=== PATIENT | female | born 2005 | race Caucasian/White ===

== ENCOUNTER 2024-11-19 11:01 | Outpatient (CLI) | payer OTHER, SELFPAY ==
--- OUTSIDE RECORDS SUMMARY | 2024-11-19 11:18 | XMS_ITS | Clinical Summary ---
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 Name Role Phone Unavailable Primary Care Provider Unavailabl e Social History Tobacco Use Types Packs/Day Years Used Date Smoking Tobacco: Never Assessed Comments Unknown Sex and Gender Information Value Date Recorded Sex Assigned at Not on file Legal Sex Female 5:52 PM [employer] Gender Identity Not on file Sexual Orientation Not on file Plan of Treatment Health Maintenance Due Date Last Done Comments Annual Physical 02/05/2007 HPV Vaccines (1 - 3-dose series) 02/05/2019 Meningococcal B Vaccine (1 o f 2 - Standard) 2020 Hepatitis C 02/05/2022 DTaP, Tdap and Td Vaccines ( 1 - Tdap) 02/05/2023 Hepatitis B Vaccines (1 of 3 - 19+ 3-dose series) 02/05/2023 COVID-19 Vaccine (1 - 2023-2 5 season) 2024 Meningococcal Vaccine Aged Out No kostas martir eligible based on patient's age to complete this topic Pneumococcal Vaccine: Pediat rics (0 to 5 Years) and At-Risk Patients (6 to 49 Years) Aged Out No longer eligible b ased on patient's age to complete this topic RSV Immunizations Under 20 Months Aged Out No longer eligible based on patient's age to complete this topic
--- OUTSIDE RECORDS SUMMARY | 2024-11-19 11:18 | XMS_ITS | Continuity of Care Document ---
Author Name [facility] Address [address] [place] [address] Organization [facility] Care Team Providers Care Certified Medical Records Coder Name Role Phone [facility] Unavailable Unavailable Problems Problem Status Onset Date Problem Type Date of Resolution Comme nts Source Influenza (disorder) 08/12/2024 Diagnosis Seasonal allergic rhinitis (disorder) Active Condition Allergies, Adverse Reactions, Alerts Substance Category Reaction Severity Reaction type Status Date Reported Comments Source amoxicillin Assertion Anaphylaxis Drug allergy Active [facility] Vital Signs Vital Sign Value Date Comments Source SBP NIBP 102 mm[Hg] 08/12/2024 21:17:[address] [facility] DBP NIBP 71 mm[Hg] 08/12/2024 21:17:[address] [facility] Heart Rate 130 bpm 08/12/2024 21:17:[address] [facility] Weight (kg) 60.3 kg 08/12/2024 21:17:[address] [facility] Respiratory Rate 14 breaths/min 08/12/2024 21:17:[address] [facility] BMI 20.5 kg/m2 08/12/2024 21:17:[address] [facility] Temperature (Celsius) 36.5 Leda 08/12/2024 21:17:[address] [facility] Height (cm) 171.5 cm 08/12/2024 21:17:[address] [facility] Encounters Location Location Details Encounter Type Encounter Number Reason For Visit Attending Provider ADM Date DC Date Status Source [facility] [id number] Loc [place] 08/12 21:11 :03 08/13 05:59 :59 [facility] Procedures Procedure Code Date Perfomer Comments Source Tonsillectomy, primary or secondary; younger than age 12 [address] [facility] Eye surgery for strabismus [facility] Social History Social History Date Source No data available for this section 08/13/[address] [facility]
[2024-11-21 14:44] LABS: Almond (F20) IgE <0.10 kU/L; Alternaria alternata IgE 0.73 kU/L; Alternaria alternata IgE Class 2; Aspergillus fumigatus IgE <0.10 kU/L; Bermuda Grass (G2) IgE <0.10 kU/L; Bermuda Grass (G2) IgE Class 0; Brazil Nut (f18) <0.10 kU/L; Brazil Nut (f18) Class 0; Cashew Nut (F202) IgE <0.10 kU/L; Cashew Nut (F202) IgE Class 0; Cat Dander IgE <0.10 kU/L; Cat Dander IgE Class 0; Cladosporium herbarum IgE <0.10 kU/L; Cladosporium herbarum IgE Clas 0; Cockroach IgE <0.10 kU/L; Cockroach IgE Clas 0; Codfish (F3) IgE <0.10 kU/L; Codfish (F3) IgE Class 0; Common Ragweed IgE Class 0; Cottonwood IgE <0.10 kU/L; Cow's Milk (F2) IgE Class 1; Dermatophagoides Farinae Class 0; Dermatophagoides Pterony Class 0; Dermatophagoides Pteronyssinus <0.10 kU/L; Dog Dander IgE <0.10 kU/L; Egg White (F1) IgE <0.10 kU/L; Egg White (F1) IgE Class 0; Elm (T8) IgE 0.23 kU/L; Elm (T8) IgE Class 0/1; Hazelnut (F17) IgE <0.10 kU/L; Hazelnut (F17) IgE Class 0; Hickory/Pecan IgE Class 3; Immunoglobulin E 42 kU/L (<OR=114); Macadamia Nut (rf345) <0.10 kU/L; Macadamia Nut (rf345) Class 0; Maple Box Elder IgE Class 0; Mountain Cedar IgE <0.10 kU/L; Mountain Cedar IgE Class 0; Mouse Urine Proteins IgE <0.10 kU/L; Mouse Urine Proteins IgE Class 0; Oak IgE <0.10 kU/L; Peanut (F13) IgE <0.10 kU/L; Peanut (F13) IgE Class 0; Peniciliium notatum class 0; Penicillium notatum (M1) IgE <0.10 kU/L; Rough Marsh <0.10 kU/L; Rough Marsh Elder Class 0; Rough Pigweed (W14) IgE <0.10 kU/L; Rough Pigweed (W14) IgE Class 0; Russian Thistle <0.10 kU/L; Salmon (F41) IgE <0.10 kU/L; Salmon (F41) IgE Class 0; Scallop (F338) IgE <0.10 kU/L; Scallop (F338) IgE Class 0; Sesame Seed <0.10 kU/L; Shrimp (F24) IgE <0.10 kU/L; Soybean (F14) IgE <0.10 kU/L; Soybean (F14) IgE Class 0; Sycamore IgE <0.10 kU/L; Sycamore IgE Class 0; Timothy Grass IgE <0.10 kU/L; Timothy Grass IgE Class 0; Tuna (F40) <0.10 kU/L; Tuna (F40) Class 0; Walnut (F256) IgE <0.10 kU/L; Walnut (F256) IgE Class 0; Walnut Tree IgE 7.78 kU/L; Walnut Tree IgE Class 3; Wheat (F4) IgE <0.10 kU/L; Wheat (F4) IgE Class 0; White Ash IgE Class 0; White Mulberry IgE <0.10 kU/L; White Mulberry IgE Class 0
== END 2024-11-19 11:02 | disposition home or self-care (01) ==
LOC: CHSLAB 11:01
PROVIDERS: PCP Nurse Practitioner Family; Visit Provider Nurse Practitioner Family
DX: T78.40XA Allergy, unspecified, initial encounter (principal)
CPT/HCPCS: 36415; 82785; 86003

== ENCOUNTER 2024-12-10 11:15 | Outpatient (CLI) | payer OTHER, SELFPAY ==
--- OUTSIDE RECORDS SUMMARY | 2024-12-10 11:19 | XMS_ITS | Continuity of Care Document ---
Author Name [facility] Address [address] [place] [address] Organization [facility] Care Team Providers Care Clinical Secretary Name Role Phone [facility] Unavailable Unavailable Problems Problem Status Onset Date Problem Type Date of Resolution Comme nts Source Influenza (disorder) 08/12/2024 Diagnosis Seasonal allergic rhinitis (disorder) Active Condition Allergies, Adverse Reactions, Alerts Substance Category Reaction Severity Reaction type Status Date Reported Comments Source amoxicillin Assertion Anaphylaxis Drug allergy Active [facility] Vital Signs Vital Sign Value Date Comments Source SBP NIBP 102 mm[Hg] 08/12/2024 21:17:00 [facility] DBP NIBP 71 mm[Hg] 08/12/2024 21:17:00 [facility] Heart Rate 130 bpm 08/12/2024 21:17:00 [facility] Weight (kg) 60.3 kg 08/12/2024 21:17:00 [facility] Respiratory Rate 14 breaths/min 08/12/2024 21:17:00 [facility] BMI 20.5 kg/m2 08/12/2024 21:17:00 [facility] Temperature (Celsius) 36.5 Leda 08/12/2024 21:17:00 [facility] Height (cm) 171.5 cm 08/12/2024 21:17:00 [facility] Encounters Location Location Details Encounter Type Encounter Number Reason For Visit Attending Provider ADM Date DC Date Status Source [facility] [place] [id number] Loc [place] 08/12 21:11 :03 08/13 05:59 :59 [facility] Procedures Procedure Code Date Perfomer Comments Source Tonsillectomy, primary or secondary; younger than age 12 [id number] [facility] Eye surgery for strabismus [facility] Social History Social History Date Source No data available for this section 08/13/2024 [facility]
[2024-12-10 12:58] LABS: Alanine Aminotransferase 14 U/L (6-35); Albumin Level 4.4 g/dL (3.5-5.1); Alkaline Phosphatase 68 U/L (38-126); Anion Gap 6 mmol/L (4-12); Aspartate Amino Transferase 23 U/L (14-36); Bilirubin,Total 0.9 mg/dL (0.2-1.3); Blood Urea Nitrogen 15 mg/dL (7-17); Calcium 9.1 mg/dL (8.4-10.2); Carbon Dioxide 24 mmol/L (22-30); Chloride 110 mmol/L (98-107); Estimated Glomerular Filt Rate > 60; Glucose 85 mg/dL (65-110); Iron 56 ug/dL (37-170); Osmolality Calculated 289 mOsm/kg (285-295); Potassium 4.7 mmol/L (3.4-5.0); Sodium 140 mmol/L (137-145); Total Protein 7.3 g/dL (6.3-8.2)
[2024-12-10 13:07] LABS: Percent Iron Saturation 12 % (20-50)
[2024-12-10 13:15] LABS: Free T4 Free Thyroxine 1.37 ng/dL (0.78-2.19); Vitamin D 25 Hydroxy 46.9 ng/mL
[2024-12-10 13:32] LABS: Ferritin 5.31 ng/mL (6.24-137)
[2024-12-11 08:48] LABS: Total Triiodothyronine (T3) 118 ng/dL (86-192)
== END 2024-12-10 11:16 | disposition home or self-care (01) ==
LOC: CHSLAB 11:16
PROVIDERS: PCP Nurse Practitioner Family; Visit Provider Nurse Practitioner Family
DX: Z79.899 Other long term (current) drug therapy (principal); R53.83 Other fatigue
CPT/HCPCS: 36415; 80053; 82306; 82728; 83540; 83550; 84439; 84443; 84480